=== PATIENT | female | born 1985 | race Caucasian/White ===

== ENCOUNTER 2017-03-18 12:47 | Emergency (ER) | payer MEDICAID ==
[~2017-03-18] VITALS: Ht 152.4 cm; Wt 56.0 kg
[2017-03-18 13:28] VITALS: BP 138/74
--- NOTE | 2017-03-18 13:38 | NUR ---
AFTER PROVIDING URINE SAMPLE, PT AMBULATES BACK TO THE LOBBY
--- NOTE | 2017-03-18 15:22 | NUR ---
PT SEEN AND DISCHARGED BY
[2017-03-20 09:12] LABS: CHLAMYDIA TRACHOMATIS AMP DNA Negative (Negative)
== END 2017-03-18 15:22 | disposition home or self-care (01) ==
LOC: MED 12:47
DX: N39.0 Urinary tract infection, site not specified (principal)
CPT/HCPCS: 36415; 81002; 81025; 87491; 99283